=== PATIENT | female | born 1960 | race Caucasian/White ===

== ENCOUNTER 2016-07-27 13:14 | Emergency (ER) | payer OTHER ==
[~2016-07-27] VITALS: Ht 157.5 cm; Wt 114.0 kg
[2016-07-27 13:53] LABS: POINT-OF-CARE METER ID UU13113778
[2016-07-27 15:01] LABS: MCH 27.9 PG (29.0-34.0); MCHC 32.9 G/DL (30.0-36.0); MCV 84.8 FL (83-99); MEAN PLAT.VOLUME 9.9 uM^3 (9.5-12.4); PLATELET COUNT 279 K/uL (156-360); RBC DIS.WIDTH-CV 13.5 % (11.8-14.6); RBC DIS.WIDTH-SD 41.7 % (39-53); RED BLOOD COUNT 4.95 M/uL (3.80-5.20); WHITE BLOOD COUNT 7.3 K/uL (4.1-10.2)
[2016-07-27 15:09] LABS: CHLORIDE 105 mEq/L (99-109); POTASSIUM 3.6 mEq/L (3.7-5.4); SODIUM 140 mEq/L (136-147)
[2016-07-27 15:11] LABS: GLUCOSE 201 mg/dL (70-99)
[2016-07-27 15:12] LABS: ANION GAP 11 MEQ/L (2-14)
[2016-07-27 15:15] LABS: GFR ESTIMATE (CALCULATED) > 59 mL/min/
[2016-07-27 15:16] LABS: UREA NITROGEN (BUN) 15 mg/dL (9-23)
[2016-07-27] MEDS ORDERED: AMOXICILLIN500 MG PO (16:11)
[2016-07-27] MEDS ORDERED: TEGRETOL200 MG PO (16:11)
[2016-07-27 17:09] VITALS: BP 146/81
== END 2016-07-27 17:10 | disposition home or self-care (01) ==
LOC: EME 13:14
PROVIDERS: Emergency Medicine
DX: R51 Headache (principal); M26.621 Arthralgia of right temporomandibular joint; K02.9 Dental caries, unspecified; E11.9 Type 2 diabetes mellitus without complications; Z85.038 Personal history of other malignant neoplasm of large intestine; Z88.6 Allergy status to analgesic agent
CPT/HCPCS: 70450; 80048; 82948; 85027; 99281; 99285